=== PATIENT | female | born 1990 | race Caucasian/White ===

== ENCOUNTER 2016-06-22 08:17 | Emergency (ER) | payer OTHER ==
[2016-06-22 08:22] VITALS: BP 105/66; PULSE 91; TEMP 98.6; BMI 20.5
--- NOTE | 2016-06-22 08:53 | PDOC ---
History of Present Illness - General Chief Complaint: Sore Throat Stated Complaint: SORE THROAT Time Seen by Provider: 06/22/16 08:44 History Source: Patient Exam Limitations: No Limitations - History of Present Illness Initial Comments: 06/22/16 08:52 MY CHIEF COMPLAINT: sore throat, fever HISTORY OF PRESENT ILLNESS: 26-year-old female with no significant medical history here today complaining of sore throat that is getting worse over the last 3 days with fever last night. Patient also reports tenderness of lymph nodes in her neck. Patient denies any nausea vomiting or diarrhea. Patient denies any sick contacts or she does have young children. Patient denies any shortness of breath soreness of throat with swallowing. Patient did have strep throat in March 2016 reports that it feels the same as when she had strep throat. 06/22/16 09:13 Timing/Duration: getting worse Severity: moderate Associated Symptoms: reports: fever/chills, other (sore throat ) Past History - Past Medical History Allergies/Adverse Reactions: Allergies Allergy/AdvReac Type Severity Reaction Status Date / Time No Known Allergies Allergy Verified 06/22/16 08:23 Home Medications: Ambulatory Orders Azithromycin [Zithromax Tri-Lencho (3 DAYS) -] 500 mg PO DAILY #3 tablet 06/22/16 - Psycho/Social/Smoking Cessation Hx Suicidal Ideation: No Smoking History: Never smoked Information on smoking cessation initiated: No Review of Systems - Review of Systems Able to Perform ROS?: Yes Constitutional: No: Symptoms Reported HEENTM: Yes: Throat Pain Respiratory: No: Symptoms reported Cardiac (ROS): No: Symptoms Reported ABD/GI: No: Symptoms Reported : No: Symptoms Reported Musculoskeletal: No: Symptoms Reported Integumentary: No: Symptoms Reported Neurological: No: Symptoms reported *Physical Exam - Vital Signs Last Vital Signs Temp Pulse Resp BP Pulse Ox 98.6 F 91 H 18 105/66 98 06/22/16 08:20 06/22/16 08:20 06/22/16 08:20 06/22/16 08:20 06/22/16 08:20 - Physical Exam General Appearance: Yes: Appropriately Dressed HEENT: positive: TMs Normal, Tonsillar Exudate, Tonsillar Erythema (no uvular deviation ). negative: Pharyngeal Erythema, Nasal Congestion, Rhinorrhea, Sinus Tenderness Neck: positive: Lymphadenopathy (R), Lymphadenopathy (L) Respiratory/Chest: positive: Lungs Clear, Normal Breath Sounds. negative: Chest Tender, Respiratory Distress Cardiovascular: positive: Regular Rhythm, Regular Rate, S1, S2 Integumentary: positive: Normal Color Neurologic: positive: Alert, Normal Response, Responsive Medical Decision Making - Medical Decision Making 06/22/16 09:16 26-year-old female with no significant medical history here today complaining of sore throat that is getting worse over the last 3 days with fever last night. Patient also reports tenderness of lymph nodes in her neck. Patient denies any nausea vomiting or diarrhea. Patient denies any sick contacts or she does have young children. Patient denies any shortness of breath soreness of throat with swallowing. Patient did have strep throat in March 2016 reports that it feels the same as when she had strep throat. No recent travel. Rule out strep throat Tonsillitis Plan: Decadron 10 mg by mouth now Ibuprofen 400 mg liquid by mouth now Throat C&S rapid negative will treat based clinical symptoms with azithromycin 500 mg daily for 3 days 06/22/16 09:55 06/22/16 09:58 *DC/Admit/Observation/Transfer Diagnosis at time of Disposition: Acute tonsillitis Qualifiers: Pharyngitis/tonsillitis etiology: unspecified etiology Qualified Code(s): J03.90 - Acute tonsillitis, unspecified - Discharge Dispostion Disposition: HOME Condition at time of disposition: Stable - Patient Instructions Additional Instructions: Drink a lot of Fluids and rest Throw Out her toothbrush at the end of treatment Take ibuprofen as needed as directed by conditioner tumbler operator for pain or fever Return to emergency room if symptoms worsen any difficulty breathing or swallowing
[2016-06-22] MEDS ORDERED: IBUPROFEN 100 MG/5 ML UNIT DOSE CUPS PO ONE (09:10)
[2016-06-22] MEDS ORDERED: DEXAMETHASONE LIQUID 0.5 MG/5 ML 240 ML BULK BOTTLE PO ONE (09:10)
[2016-06-22] MEDS ORDERED: DEXAMETHASONE SOD PHOSPHATE 10 MG/1 ML VIAL ONE (09:15)
[2016-06-22] MEDS ORDERED: IBUPROFEN 100 MG/5 ML UNIT DOSE CUPS ONE (09:15)
== END 2016-06-22 10:10 | disposition home or self-care (01) ==
LOC: JERFT 08:17
DX: J03.90 Acute tonsillitis, unspecified (principal)
CPT/HCPCS: 87070; 87430; 99281-25

== ENCOUNTER 2016-08-28 22:16 | Emergency (ER) | payer OTHER ==
[2016-08-28 22:25] VITALS: BP 106/62; PULSE 97; TEMP 98.4; BMI 22.3
--- NOTE | 2016-08-28 22:50 | PDOC ---
History of Present Illness - General History Source: Patient Exam Limitations: No Limitations - History of Present Illness Initial Comments: 08/28/16 22:54 The patient is a 26 year old female with no significant past medical history who presents to the ED for 2 days of cold-like symptoms. Patient reports fever, sore throat, headache, and nausea. Denies vomiting. States she was diagnosed with strep 2 months ago and was placed on amoxicillin. The patient denies chills, cough, SOB, chest pain, abdominal pain, and diarrhea. The patient denies dysuria, hematuria, urgency, and frequency. <Florinda Alvarez - Last Filed: 08/28/16 22:54> - General History Source: Patient <FamiliaJannette irwinan - Last Filed: 08/28/16 22:57> - General Chief Complaint: Sore Throat Stated Complaint: SORE THROAT Time Seen by Provider: 08/28/16 22:43 Past History <Florinda Alvarez - Last Filed: 08/28/16 22:54> - Past Medical History Other medical history: strep throat - Psycho/Social/Smoking Cessation Hx Suicidal Ideation: No Smoking History: Never smoked <Jeromy Pack - Last Filed: 08/28/16 22:57> - Past Medical History Allergies/Adverse Reactions: Allergies Allergy/AdvReac Type Severity Reaction Status Date / Time No Known Allergies Allergy Verified 08/28/16 22:22 Home Medications: Ambulatory Orders Ibuprofen [Motrin] 600 mg PO TID #30 tablet 08/28/16 Penicillin V Potassium [Pen Vee K -] 500 mg PO TID #30 tablet 08/28/16 Review of Systems - Review of Systems Able to Perform ROS?: Yes Comments:: 08/28/16 22:55 CONSTITUTIONAL: +fever Absent: no chills, no fatigue EYES: Absent: visual changes ENT: +sore throat Absent: ear pain CARDIOVASCULAR: Absent: chest pain, no palpitations RESPIRATORY: Absent: cough, no SOB GI: +nausea Absent: abdominal pain, no vomiting, no constipation, no diarrhea GENITOURINARY: Absent: dysuria, no frequency, no hematuria MUSCULOSKELETAL: Absent: back pain, no arthralgia, no myalgia SKIN: Absent: rash NEURO: +headache <Florinda Alvarez - Last Filed: 08/28/16 22:54> *Physical Exam - Vital Signs Last Vital Signs Temp Pulse Resp BP Pulse Ox 98.4 F 97 H 18 106/62 99 08/28/16 22:24 08/28/16 22:24 08/28/16 22:24 08/28/16 22:24 08/28/16 22:24 - Physical Exam Comments: 08/28/16 22:55 GENERAL: Well-appearing, well-nourished. No apparent distress. HEENT: Normocephalic, atraumatic. PERRL, EOM intact. Bilateral pharyngeal enlargement, erythema, and exudates, left greater than right. CARDIOVASCULAR: Normal S1, S2. Regular rate and rhythm. PULMONARY: Clear to auscultation bilaterally. ABDOMEN: Soft, non-distended, non-tender. EXTREMITIES: Normal ROM in all four extremities. No gross deformities. SKIN: Warm, dry. No rash NEUROLOGICAL: No focal neurological deficits. <Florinda Alvarez - Last Filed: 08/28/16 22:54> - Vital Signs Last Vital Signs Temp Pulse Resp BP Pulse Ox 98.4 F 97 H 18 106/62 99 08/28/16 22:24 08/28/16 22:24 08/28/16 22:24 08/28/16 22:24 08/28/16 22:24 <Jeromy Pack - Last Filed: 08/28/16 22:57> Medical Decision Making - Medical Decision Making 08/28/16 22:57 Dr. Pack: The scribe's documentation has been prepared under my direction and personally reviewed by me in its entirery. I confirm that the note above accurately reflects all work, treatment, procedures, and medical decision making performed by me. <Jeromy Pack - Last Filed: 08/28/16 22:57> *DC/Admit/Observation/Transfer - Attestations Scribe Attestion: 08/28/16 22:55 Documentation prepared by Florinda Alvarez, acting as family practice medical doctor for Jeromy Pack MD/. <Florinda Alvarez - Last Filed: 08/28/16 22:54> - Discharge Dispostion Admit: No <Jeromy Pack - Last Filed: 08/28/16 22:57> Diagnosis at time of Disposition: Acute tonsillitis - Discharge Dispostion Disposition: HOME Condition at time of disposition: Stable - Prescriptions Prescriptions: Ibuprofen [Motrin] 600 mg PO TID #30 tablet Penicillin V Potassium [Pen Vee K -] 500 mg PO TID #30 tablet - Referrals Referrals: Raphael Cruz MD [Staff Physician] - - Patient Instructions Printed Discharge Instructions: DI for Pharyngitis/Tonsillopharyngitis -- Adult Print Language: PERSIAN
[2016-08-28] MEDS ORDERED: PENICILLIN V POTASSIUM 500 MG TABLET PO ONE (22:52)
[2016-08-28] MEDS ORDERED: IBUPROFEN 600 MG TABLET (FP) PO STA (22:53)
[2016-08-28] MEDS ORDERED: IBUPROFEN 600 MG TABLET (FP) PO ONE (23:05)
== END 2016-08-28 23:10 | disposition home or self-care (01) ==
LOC: JER 22:16
DX: J03.90 Acute tonsillitis, unspecified (principal)
CPT/HCPCS: 99281-25